=== PATIENT | female | born 1955 ===

== ENCOUNTER 2016-11-18 07:39 | Day surgery (SDC) | payer OTHER ==
[2016-11-18 08:06] VITALS: BMI 25.9
[2016-11-18 08:21] VITALS: O2SAT 100
[2016-11-18] MEDS ORDERED: Lidocaine Hydrochloride 5 ML INJ ONE (09:06)
[2016-11-18] MEDS ORDERED: Propofol 10 mg/ml Inj (20 ML) ONE ×2 (09:06→09:21)
[2016-11-18] MEDS ORDERED: Succinylcholine Chloride 20 mg/ml Syr (5 ml) IV ONE (09:07)
[2016-11-18] MEDS ORDERED: Atropine 0.4 mg/ml Inj (1 mL) ONE (09:07)
[2016-11-18] MEDS ORDERED: ePHEDrine 50 mg/ml Inj ONE (09:12)
[2016-11-18] MEDS ORDERED: Simethicone 40 mg/0.6 ml Liquid (30 ml) ONE (09:13)
[2016-11-18] MEDS ORDERED: Lactated Ringer's 500 ML IV ONE (09:14)
[2016-11-18 10:46] VITALS: TEMP 98.2
[2016-11-18 10:52] VITALS: BP 105/59; PULSE 68; RESP 16
== END 2016-11-18 10:58 | disposition home or self-care (01) ==
LOC: C.ENDO 07:39
PROVIDERS: ATTEND Internal Medicine Gastroenterology
DX: D12.3 Benign neoplasm of transverse colon (principal); K57.90 Diverticulosis of intestine, part unspecified, without perforation or abscess without bleeding; K62.1 Rectal polyp
CPT/HCPCS: 45388; 88305; J0461; J2704; J7040; J7120